=== PATIENT | male | born 1990 | race Caucasian/White ===

== ENCOUNTER 2022-01-22 15:33 | Outpatient (REF) | payer OTHER, SELFPAY ==
[2022-01-23 15:46] LABS: CT PCR NOT DETECTED (Not Detect.); NG PCR DETECTED (Not Detect.)
== END 2022-01-22 15:34 | disposition home or self-care (01) ==
LOC: HO.LAB 15:33
PROVIDERS: Visit Provider Nurse Practitioner Family
DX: Z11.3 Encounter for screening for infections with a predominantly sexual mode of transmission (principal); R30.0 Dysuria; R36.0 Urethral discharge without blood
CPT/HCPCS: 87086; 87491; 87591

== ENCOUNTER 2022-01-23 08:05 | Outpatient (REF) | payer OTHER, SELFPAY ==
[2022-01-23 12:28] LABS: HBc Num1 0.09 S/CO (0.00-0.79); HBsAGNum1 0.19 S/CO (0.00-0.99); HIV AB/AG Nonreactive (Nonreactive); HIV Num 1 0.06 S/CO (0.00-0.99); Hepatitis B Core Antibody Nonreactive (Nonreactive); Hepatitis B Surface Antigen Negative (Negative); ~Hepatitis B Surface Antibody REACTIVE (Nonreactive); ~Hepatitis C Antibody Nonreactive (Nonreactive)
[2022-01-24 05:13] LABS: Syphilis Screen Nonreactive (Nonreactive)
== END 2022-01-23 08:06 | disposition home or self-care (01) ==
LOC: HO.WFDLDS 08:05
PROVIDERS: Visit Provider Nurse Practitioner Family
DX: R30.0 Dysuria (principal); R36.0 Urethral discharge without blood; Z11.3 Encounter for screening for infections with a predominantly sexual mode of transmission; Z11.8 Encounter for screening for other infectious and parasitic diseases; Z11.4 Encounter for screening for human immunodeficiency virus [HIV]; Z11.59 Encounter for screening for other viral diseases
CPT/HCPCS: 36415; 86704; 86706; 86780; 86803; 87340; 87389

== ENCOUNTER 2024-07-13 09:06 | Outpatient (AMB) | payer OTHER, SELFPAY ==
--- NOTE | 2024-07-13 09:12 | MHC.PC.OV ---
Vital Signs 07/13/24 09:14 Height 5 ft 8.5 in Weight 158 lb BMI 23.7 BP 142/90 H Blood Pressure Location Lt brachial Position Sitting Intake Visit Reasons: Re-establish care Intake Note: Patient here to re-establish care Abap Developer Required: Yes Abap Developer Language: Performing Arts Technicians Name: Sylvia Pulliam MD Information Interpreted: non-clinical & clinical Accompanied by: Self / Same As Patient Allergies seafood Allergy (Intermediate, Verified 07/13/24 09:37) Chest Pain Medication List - Last Reconciled 07/13/24 by Sylvia Pulliam MD amlodipine 10 mg PO DAILY cholecalciferol (vitamin D3) 25 mcg PO DAILY cinacalcet 30 mg PO DAILY mycophenolate sodium 540 mg PO BID prednisone mg PO sulfamethoxazole-trimethoprim 400-80 mg 1 tab PO DAILY tacrolimus 0 mg PO valganciclovir 450 mg PO DAILY Tobacco use date assessed: 07/13/24 Dental Screening Dental Screen Date: 07/13/24 Did you have a dental visit in the last 12 months?: Yes Did you have a dental problem in the last 6 months where you did not have access to dental care?: No Was dental information given to patient?: Patient has dentist HPI HPI Comments History of Present Illness Details The patient is a 33-year-old male presenting for hypertension management. The patient has a longstanding history of elevated blood pressure, slightly elevated at present. He is currently prescribed Amlodipine 10 mg and recently added Hydralazine 10 mg three times a day. His blood pressure has been intermittently controlled. Additionally, the patient is status post renal transplant from 2019, initially faced organ rejection, with subsequent stabilization after treatment adjustment. His management includes immunosuppressive therapy with Sacrolimus 1 mg as well as routine follow-up with a nephrology specialist. He has prediabetes, noted earlier this year, and is being monitored for this condition. The patient was on short-term Prednisone but is completing the course. A recent hospitalization addressed complications linked to his renal transplant. He abstains from alcohol except on rare special occasions and has quit smoking. [facility] Medical History Essential hypertension Surgical History Kidney transplant status History of kidney surgery Family History Father No problems noted. Mother Diabetes Hypertension Social History Housing: Apartment Alcohol intake: current Alcohol intake frequency: holidays/special occasions only Alcohol type: wine and other Patient Tobacco Use Status: Former Tobacco user Tobacco use type: Cigarette e-Cigarette/Vaping Use: Never Used Second Hand Smoke Exposure: No service: No Current occupational status: unemployed Cognitive needs: No Hearing needs: No Vision needs: No Questionnaire PHQ-9 Over the last 2 weeks, how often have you been bothered by any of the following problems? 1. Little interest or pleasure in doing things: not at all 2. Feeling down, depressed, or hopeless: not at all 3. Trouble falling or staying asleep, or sleeping too much: not at all 4. Feeling tired or having little energy: not at all 5. Poor appetite or overeating: not at all 6. Feeling bad about yourself - or that you are a failure or have let yourself or your family down: not at all 7. Trouble concentrating on things, such as reading the newspaper or watching television: not at all 8. Moving or speaking so slowly that other people could have noticed. Or the opposite - being so fidgety or restless that you have been moving around a lot more than usual: not at all 9. Thoughts that you would be better off or of hurting yourself in some way: not at all Total score: 0 Depression Screening Interpretation: Negative Depression Screening Done: Yes 34196 - PHQ-9 Billing: Yes Source: Developed by Drs. Neil Mc, Erica Westbrook, Nikos Randhawa and colleagues, with an educational shawn from [employer]. Thrive Questionnaire Date Thrive assessed: 07/13/24 I am a: Patient What is your living situation today?: I have a steady place to live Within the past 12 months, did the food you bought not last and you didn't have the money to get more?: Never true Within the past 12 months, did you worry whether your food would run out before you got money to buy more?: Never true Do you have trouble paying for medicines?: No Do you have trouble getting transportation to medical appointments?: No Do you have trouble paying your heating and electricity bill?: No Do you have trouble taking care of your child, family member or friend?: No Do you have trouble with day-to-day activities such as bathing, preparing meals, shopping, managing finances, etc.?: No Are you currently unemployed and looking for a job?: No Are you interested in more education?: No Please select the resources that you would like help with: None Currently or been in a relationship where the following occur: No concerns reported THRIVE Score: 0 AUDIT C Alcohol Use Questionnaire (AUDIT-C) 1. How often do you have a drink containing alcohol?: Never Total Score: 0 Score Reviewed/Action Taken: No JOANNE-7 AMB Questionnaire JOANNE-7 Date JOANNE - 7 assessed: 07/13/24 Feeling nervous, anxious, or on edge: 0 = Not at all Not being able to stop or control worryin = Not at all Worrying too much about different things: 0 = Not at all Trouble relaxin = Not at all Being so restless that it is hard to sit still: 0 = Not at all Becoming easily annoyed or irritable: 0 = Not at all Feeling afraid as if something awful might happen: 0 = Not at all Total JOANNE-7 score (0-4 normal; 5-9 mild; 10-14 moderate; 15-21 severe): 0 Source: Developed by Drs. Neil Mc, Erica Westbrook, Nikos Radnhawa and colleagues, with an educational shawn from [employer]. JOANNE-7 Assessment Billing JOANNE-7 Assessment Tool: JOANNE-7 Assessment 61864 Review of Systems Const All systems reviewed & are unremarkable except as noted in HPI and below Card Denies chest pain at rest, Denies chest pain with activity, Denies edema, Denies irregular heart rhythm, Denies claudication, Denies dyspnea, Denies dyspnea on exertion, Denies orthopnea, Denies paroxysmal nocturnal dyspnea and Denies slow heart rate Resp Denies cough, Denies dyspnea and Denies dyspnea on exertion Musc Denies atrophy, Denies deformity and Denies limited range of motion Skin/Breast Denies bleeding lesions, Denies changing lesions and Denies rash Physical exam (Primary Care) Vital Signs: Last Vital Signs BP 142/90 H 07/13/24 09:14 BMI result Body Mass Index 23.7 Tobacco/Smoking Status: Tobacco use Status Tobacco use date assessed 07/13/24 07/13/24 09:24 Patient Tobacco Use Status Former Tobacco user 07/13/24 09:24 Tobacco use type Cigarette 07/13/24 09:24 e-Cigarette/Vaping Use Never Used 07/13/24 09:12 PHQ-9: PHQ-9 Score PHQ-9: Total score 0 07/13/24 09:44 Depression Screening Interpretation: Negative Thrive Assessment: Date of Thrive Assessment Date Thrive assessed 07/13/24 07/13/24 09:24 Currently or been in a relationship where the following occur: No concerns reported Resp Effort & Inspection: normal respiratory effort Auscultation: clear to auscultation bilaterally Cardio Jugular venous distension: no JVD Rate: regular rate Rhythm: regular rhythm Heart sounds: S1 normal heart sound present and S2 normal heart sound present Extrem General: Yes full ROM Coding Level of Care Code Est Pt Level 4 (34802) Complex EM visit Add On G2211 Diagnoses Essential hypertension I10 Kidney transplant status Z94.0 Impaired glucose tolerance R73.02 CKD (chronic kidney disease) stage 3, GFR 30-59 ml/min N18.30 Additional Codes JOANNE-7 Assessment Billing - JOANNE-7 Assessment Tool: JOANNE-7 Assessment 29083 ([id number]) PHQ-9 - 26081 - PHQ-9 Billing: Yes ([id number]) Time Spent (min) 25 Assessment & Plan Assessment & Plan (1) Essential hypertension: Code(s): I10 - Essential (primary) hypertension Category: Medical (2) Kidney transplant status: Comment: July 2018 Code(s): Z94.0 - Kidney transplant status Category: Surgical (3) Impaired glucose tolerance: Code(s): R73.02 - Impaired glucose tolerance (oral) Category: Medical (4) CKD (chronic kidney disease) stage 3, GFR 30-59 ml/min: Code(s): N18.30 - Chronic kidney disease, stage 3 unspecified Category: Medical Plan Management involves overseeing hypertension, maintained under control with Amlodipine and Hydralazine. Continued dual therapy aims to improve control over hypertension. The chronic kidney disease and renal transplant status necessitate ongoing use of Sacrolimus and regular nephrology consultations. Blood glucose and anemia will be monitored post-Prednisone cessation. The plan includes following up with completed laboratory evaluations in three weeks. Additional assessment of cholesterol and hemoglobin will help tailor future management for anemia and related conditions. Patient was informed and verbally consented to the use of an ambient scribe for clinic note documentation during this visit. During the visit, I discussed the increased blood pressure and the plan to manage it with both lifestyle modifications and medication adjustments. The risks and benefits of Amlodipine and Hydralazine were reviewed, noting the necessity of regular monitoring due to potential side effects. The importance of sticking to the current regimen post-kidney transplant was emphasized, particularly the significance of Sacrolimus. Management strategies were discussed for the slight rise in blood glucose, with instructions to reduce sugars two weeks after Prednisone cessation. Follow-up for chronic kidney disease with microbiology analyst and monitoring changes in blood work were advised. Patient clearly understands the healthcare plan and the importance of adherence. Orders: Orders Lipid Panel Today E78.5 - Hyperlipidemia, unspecified IRON PROFILE Today D64.9 - Anemia, unspecified Vitamin D 25-OH Total Today E55.9 - Vitamin D deficiency, unspecified Complete Blood Count Auto Diff Today D64.9 - Anemia, unspecified Comprehensive [place]. Panel Fast Today N18.30 - Chronic kidney disease, stage 3 unspecified Medications: New hydralazine 10 mg PO TID 30 days 90 tabs 2RF I10 - Essential (primary) hypertension hydralazine 10 mg PO TID 90 tabs 2RF 30 days I10 - Essential (primary) hypertension Patient Instructions: - Continue taking Amlodipine 10 mg daily. - Start Hydralazine 10 mg three times a day. - Monitor blood pressure regularly and report significant readings. - Follow up in three weeks for further evaluation. - Continue Sacrolimus and other medications for kidney transplant management. - Plan for lab work two weeks after Prednisone treatment ends. - Maintain a healthy diet with monitoring of sugar intake. - Report any new or worsening symptoms immediately.
[2024-07-13 09:14] VITALS: BP 142/90; BMI 23.7
--- OUTSIDE RECORDS SUMMARY | 2024-07-13 09:56 | XMS_ITS | Clinical Summary ---
Author Organization Formerly [facility] Address [address] [place] [address] Care Team Providers Care Senior Label Specialist Name Role Phone Pcp, No Primary Care Provider Unavailabl e Encounters Date Type Department Care Team Description 06/02/2024 Orders Only [facility] Fernando Ansari MD from Last 3 Months Social History Tobacco Use Types Packs/Day Years Used Date Smoking Tobacco: Never Assessed Sex and Gender Information Value Date Recorded Sex Assigned at Not on file Gender Identity Not on file Sexual Orientation Not on file Plan of Treatment Health Maintenance Due Date Last Done Comments Hepatitis C Virus Screening 1990 HIV Screening 07/23/2003 DTaP/Tdap/Td Vaccines (1 - Tdap) 2009 Pneumococcal Vaccine: Pediat heavenly (0-5 Years) and At-Risk Patients (6 to 49 Years) (1 of 2 - PCV) 2009 Hepatitis B Vaccines (1 of 3 - Risk Dialysis 4-dose series) 2010 Influenza Vaccine 11/26/2023 COVID-19 Vaccine ( - 2023-2 5 season) 2023 HPV Vaccines Aged Out No longer eligi ble based on patient's age to complete this topic Procedures Procedure Name Priority Date/Time Associated Diagnosis Comments LAB RESULT Routine 06/01/2024 8:44 AM EST from Last 3 Months Results * LAB RESULT (06/01/2024 8:44 AM EST) Fernando Ansari MD HX AMB PROCEDURES from Last 3 Months Care Teams Senior Label Specialist Relationship Specialty Start Date End Date Pcp, [address] [place] [address] PCP - General 01/23/21
--- OUTSIDE RECORDS SUMMARY | 2024-07-13 09:56 | XMS_ITS | Clinical Summary ---
Author Organization [facility] Address [address] [facility] [address] [place] [address] Phone Care Team Providers Care Aerodynamics Teacher Name Role Phone Sylvia Gannon MD Primary Care Provider [phone] Allergies No known active allergies Medications cinacalcet (SENSIPAR) 30 MG tabletIndicatio ns:History of renal transplant Take 1 tablet (30 mg total) by mouth 1 (one) time each day 30 tablet 11 3 Active ergocalciferol 1.25 MG (90964 UT) capsule MONICA YONI CAPSULA POR LA BOCA CADA SEMANA 4 capsule 11 3 Active mycophenolate (MYFORTIC) 180 MG EC tablet Take 3 tablets (540 mg total) by mouth in the morning and 3 tablets (540 mg total) in the evening. 540 tablet 3 5 05/24/19 26 Active tacrolimus (PROGRAF) 0.5 MG capsule Take 1 capsule (0.5 mg total) by mouth in the morning and 1 capsule (0.5 mg total) in the evening. 180 capsule 5 09/01/19 25 Active amLODIPine (NORVASC) 10 MG tabletIndicatio ns:Hypertensive disorder Take 1 tablet (10 mg total) by mouth 1 (one) time each day 30 tablet 11 5 06/23/19 26 Active amLODIPine (NORVASC) 10 MG tabletIndicatio ns:Hypertensive disorder Take 1 tablet (10 mg total) by mouth 1 (one) time each day 30 tablet 11 3 06/23/19 25 Discontinu ed(Reorder (does not appear on AVS)) Active Problems Problem Noted Date Diagnosed Date Acute nontraumatic kidney injury 01/22/2021 Cardiomyopathy 01/22/2021 History of renal transplant 01/22/2021 Hypertensive disorder 01/22/2021 Poisoning by antineoplastic and immunosuppressiv e drugs 01/22/2021 Recipient of transplantation 08/03/2017 Overview (08/18/2022): campath induction Hyperparathyroidism due to renal insufficiency 0 07/14/2009 Metabolic bone disease 07/14/2009 Anemia of chronic renal failure 06/18/2009 Iron deficiency anemia 06/18/2009 Resolved Problems Problem Noted Date Diagnosed Date Resolved Date Chronic kidney disease stage 3 01/22/2021 02/18/2022 Diabetes mellitus 01/22/2021 02/18/2022 On waiting list for organ transplant 01/22/2021 03/18/2022 End stage renal disease 06/22/201201/26 Dependence on hemodialysis d ue to end stage renal disease 07/14/2009 02/18/2022 Encounters Date Type Department Care Team Description 06/23/2024 Refill [facility] [address] [address] Ina Mcdowell Hypertensive disorder 06/17/2024 Orders Only [facility] [address] [address] Jorge Mcknight MD History of renal transplant 06/02/2024 Telephone [facility] [address] [address] Jorge Mcknight MD 06/01/2024 Telephone [facility] [address] [address] Jorge Mcknight MD 05/30/2024 Office Communication [facility] [address] [address] Tai Mcdowelliana 05/24/2024 3:45 PM EST Office Visit [facility] [address] [place] [address] Jorge Mcknight MD History of renal transplant (Primary Dx) 05/24/2024 Office Communication [facility] [address] [place] [phone] Jorge Mcknight MD from Last 3 Months Immunizations Name Administration Dates Next Due Influenza (IM) Preservative Free 02/02/2013 Pneumococcal Polysaccharide 06/04/2012 Family History Medical History Relation Comments Hypertension Father Diabetes Mother Hypertension Mother Relation Status Comments Father Alive Mother Alive Social History Tobacco Use Types Packs/Day Years Used Date Smoking Tobacco: Former Smokeless Tobacco: Never Tobacco Cessation:Counseling Given: Not Answered Alcohol Use Standard Drinks/Week Comments Never 0 (1 standard drink = 0.6 oz pur e alcohol) Sex and Gender Information Value Date Recorded Sex Assigned at Not on file Legal Sex Male 5:07 PM EST Gender Identity Not on file Sexual Orientation Not on file Last Filed Vital Signs Vital Sign Reading Time Taken Comments Blood Pressure 130/90 05/24/2024 3:29 PM EST Pulse 94 05/24/2024 3:29 PM EST Temperature - - Respiratory Rate - - Oxygen Saturation 97% 05/24/2024 3:29 PM EST Inhaled Oxygen Concentration - - Weight 78.7 kg (173 lb 9.6 oz) 05/24/2024 3:29 P M EST Height 172.7 cm (5' 8 ) 03/18/2022 11:36 AM EST Body Mass Index 26.4 03/18/2022 11:36 AM EST Plan of Treatment Upcoming Encounters Date Type Department Care Team (Late st Contact Info) Description 09/02/2024 10:15 AM EDT Office Visit [facility] [address] [place] [phone] Jorge Mcknight MD [address] [phone] Health Maintenance Due Date Last Done Comments Hepatitis B Vaccine (1 of 3 - 19+ 3-dose series) 03/28 /2010 Pneumococcal Vaccine: Pediat rics (0 to 5 Years) and At-Risk Patients (6 to 64 Years) (2 of 2 - PCV) 06/04/2013 06/04/2012 Influenza Vaccine (#1) 2023 02/02/2013 Procedures Procedure Name Priority Date/Time Associated Diagnosis Comments BK VIRUS, DNA, QUANTITATIVE Routine 05/30/2024 11:20 AM EST History of renal transplant VITAMIN D 25 HYDROXY Routine 05/30/2024 11:20 AM EST History of renal transplant PTH, INTACT Routine 05/30/2024 11:20 AM EST History of renal transplant IRON PANEL (FE, TIBC, TSAT) Routine 05/30/2024 11:20 AM EST History of renal transplant URIC ACID Routine 05/30/2024 11:20 AM EST History of renal transplant FERRITIN Routine 05/30/2024 11:20 AM EST History of renal transplant HEMOGLOBIN A1C Routine 05/30/2024 11:20 AM EST History of renal transplant PHOSPHATE ( PHOSPHORUS) Routine 05/30/2024 11:20 AM EST History of renal transplant MAGNESIUM Routine 05/30/2024 11:20 AM EST History of renal transplant URINE ALBUMIN / CREATININE RATIO Routine 05/30/2024 11:20 AM EST History of renal transplant PROTEIN / CREATININE RATIO, URINE Routine 05/30/2024 11:20 AM EST History of renal transplant URINALYSIS WITH MICROSCOPIC Routine 05/30/2024 11:20 AM EST History of renal transplant BASIC METABOLIC PANEL Routine 05/30/2024 11:20 AM EST History of renal transplant CBC AND DIFFERENTIAL Routine 05/30/2024 11:20 AM EST History of renal transplant TACROLIMUS LEVEL Routine 05/30/2024 11:2 0 AM EST History of renal transplant MICROSCOPIC EXAMINATION - DO NOT USE Routine 05/30/2024 11:20 AM EST BASIC METABOLIC PANEL Routine 05/26/2024 10:28 AM EST History of renal transplant TACROLIMUS, HIGHLY SENSITIVE, LC/MS/MS Routine 05/26/2024 10:24 AM EST from Last 3 Months Results * Microscopic Examination (05/30/2024 11:20 AM EST) WBC, Urine 0-5 0 - 5 /hpf [facility] RBC, Urine None seen 0 - 2 /hpf [facility] Squamous Epithelial, Urine 0-10 0 - 10 /hpf [facility] Casts None seen None seen /lpf [facility] Bacteria, Urine None seen None seen/Few [facility] 05/30/2024 11:2 0 AM EST 05/30/2024 Jorge Mcknight MD LAB MICROBIOLOGY - NERAL ORDERABLES Final Result [facility] [address] [place] [address] * Tacrolimus level (05/30/2024 11:20 AM EST) Tacrolimus Lvl 13.2 5.0 - 20.0 ng/mL [facility] Comment: Target steady state trough concentration for Tacrolimus varies based on type of organ transplant immunosuppressive protocol and other patient specific factors. ??Tacrolimus trough concentrations should be interpreted in conjunction with clinical assessments of rejection and tolerability. ??Values obtained with different assay methods cannot be used interchangeably due to differences in assay methods and cross-reactivty with metabolites, nor should correction factors be applied. ??Therefore, consistent use of one assay for individual patients is recommended. Detection Limit = 0.5 ng/mL Performed by LC-MS/MS technology ?Please note reference interval change Blood (Blood, Venous) 05/30/2024 11:20 AM EST 05/30/2024 Narrative [facility] - 06/01/2024 11:06 PM EST Test(s) [id number] ([id number]), Blood was developed and its performance characteristics determined by [employer]. It has not been cleared or approved by the Food and Drug Administration. Jorge Mcknight MD LAB BLOOD ORDERABLES Final Result Performing Organization Address City/[facility] Co de Phone Number [facility] [address] [place] [address] * (ABNORMAL) Iron Panel (Fe, TIBC, TSAT) (05/30/2024 11:20 AM EST) TIBC 281 250 - 450 ug/dL [facility] UIBC 114 111 - 343 ug/dL [facility] Iron 167 38 - 169 ug/dL [facility] Iron Saturation (TSat) 59(H) 15 - 55 % [facility] Blood (Blood, Venous) 05/30/2024 11:20 AM EST 05/30/2024 Jorge Mcknight MD LAB BLOOD ORDERABLES Final Result Performing Organization Address City/[facility]/ZIP Co de Phone Number [facility] [address] [place] [address] * (ABNORMAL) Protein, Total, Random Urine w/Creatinine (Protein/Creat Ratio) (05/30/2024 11:20 AM EST) Creatinine, Ur 169.1 Not Estab. mg/dL [facility] Protein, Ur 44.2 Not Estab. mg/dL [facility] Urine Protein/Creati nine Ratio 261(H) 0 - 200 mg/g creat [facility] Urine (Urine, Clean Catch) 05/30/2024 11:20 AM EST 05/30/2024 Jorge Mcknight MD LAB URINE ORDERABLES Final Result Performing Organization Address [facility] Co de Phone Number [facility] [address] [place] [address] * (ABNORMAL) Urine Albumin / Creatinine Ratio (05/30/2024 11:20 AM EST) Albumin, Urine 190.7 Not Estab. ug/mL [facility] Albumin/Creatin ine Ratio 113(H) 0 - 29 mg/g creat [facility] Comment: ? Normal: ?0 - ??29 ? Moderately increased: 30 - 300 ? Severely increased: ? >300 Urine (Urine, Clean Catch) 05/30/2024 11:20 AM EST 05/30/2024 Jorge Mcknight MD LAB URINE ORDERABLES Final Result Performing Organization Address [facility] Co de Phone Number [facility] [address] [place] [address] * BK virus, DNA, quantitative (05/30/2024 11:20 AM EST) BK VIRUS DNA, PCR Negative Negative IU/mL [facility] Comment: No BK DNA detected. The linear range of the assay is 22 - 100,000,000 IU/mL. Blood (Blood, Venous) 05/30/2024 11:20 AM EST 05/30/2024 Jorge Mcknight MD LAB BLOOD ORDERABLES Final Result Performing Organization Address City/[facility]/ZIP Co de Phone Number [facility] [address] [place] [address] * (ABNORMAL) Vitamin D 25 Hydroxy (05/30/2024 11:20 AM EST) Vitamin D, 25-OH, Total 23.1(L) 30.0 - 100.0 ng/mL [facility] Comment: Vitamin D deficiency has been defined by the [place] of Medicine and an Endocrine Society practice guideline as a level of serum 25-OH vitamin D less than 20 ng/mL (1,2). The Endocrine Society went on to further define vitamin D insufficiency as a level between 21 and 29 ng/mL (2). 1. IOM ([place] of Medicine). 2010. Dietary reference ?? intakes for calcium and D. [place]: The ?? National Academies Press. 2. Pia MF, Anil NC, Rey CARVAJAL, et al. ?? Evaluation, treatment, and prevention of vitamin D ?? deficiency: an Endocrine Society clinical practice ?? guideline. JCEM. 2010; 96(7):1911-30. Blood (Blood, Venous) 05/30/2024 11:20 AM EST 05/30/2024 Jorge Mcknight MD LAB BLOOD ORDERABLES Final Result [facility] [address] [place] [address] * (ABNORMAL) Urinalysis with microscopic (05/30/2024 11:20 AM EST) Specific [place], Urine 1.015 1.005 - 1.030 [facility] pH Urine 5.5 5.0 - 7.5 [facility] Color, Urine Yellow Yellow [facility] Appearance Urine Clear Clear [facility] WBC Esterase Urine Negative Negative [facility] Protein, Ur 2+(A) Negative/Tra ce [facility] Glucose, Ur Negative Negative [facility] [phone] Ketones, Urine Negative Negative [facility] Blood Urine Negative Negative [facility] Bilirubin Urine Negative Negative [facility] Urobilinogen Urine 0.2 0.2 - 1.0 mg/dL [facility] Nitrite, Urine Negative Negative [facility] Microscopic Examination See below: [facility] Comment:Microscopic was yves cated and was performed. Urine (Urine, Clean Catch) 05/30/2024 11:20 AM EST 05/30/2024 us Jorge Mcknight MD LAB URINE ORDERABLES Final Result [facility] [address] [place] [address] * (ABNORMAL) CBC and Differential (05/30/2024 11:20 AM EST) WBC 9.3 3.4 - 10.8 x10E3/uL [facility] RBC 4.52 4.14 - 5.80 x10E6/uL [facility] Hemoglobin 13.9 13.0 - 17.7 g/dL [facility] Hematocrit 41.1 37.5 - 51.0 % [facility] MCV 91 79 - 97 fL [facility] MCH 30.8 26.6 - 33.0 pg [facility] MCHC 33.8 31.5 - 35.7 g/dL [facility] RDW 11.7 11.6 - 15.4 % [facility] Platelets 270 150 - 450 x10E3/uL [facility] Neutrophils Relative 78 Not Estab. % [facility] Lymphocytes Relative 15 Not Estab. % [facility] Monocytes 7 Not Estab. % [facility] Eosinophils Relative 0 Not Estab. % [facility] Basophils Relative 0 Not Estab. % [facility] Neutrophils Absolute 7.1(H) 1.4 - 7.0 x10E3/uL [facility] Lymphocytes Absolute 1.4 0.7 - 3.1 x10E3/uL [facility] Monocytes Absolute 0.6 0.1 - 0.9 x10E3/uL [facility] Eosinophils Absolute 0.0 0.0 - 0.4 x10E3/uL [facility] Basophils Absolute 0.0 0.0 - 0.2 x10E3/uL [facility] Immature Granulocytes 0 Not Estab. % [facility] Immature Grans (Absolute) 0.0 0.0 - 0.1 x10E3/uL [facility] Blood (Blood, Venous) 05/30/2024 11:20 AM EST 05/30/2024 Jorge Mcknight MD LAB BLOOD ORDERABLES Final Result [facility] [address] [place] [address] * Uric Acid (05/30/2024 11:20 AM EST) Uric Acid 7.5 3.8 - 8.4 mg/dL [facility] Comment:Therapeutic target f or gout patients: <6.0 Blood (Blood, Venous) 05/30/2024 11:20 AM EST 05/30/2024 Jorge Mcknight MD LAB BLOOD ORDERABLES Final Result Performing Organization Address City/[facility]/ZIP Co de Phone Number [facility] [address] [place] [address] * Phosphorus (05/30/2024 11:20 AM EST) Phosphorus 2.8 2.8 - 4.1 mg/dL [facility] Blood (Blood, Venous) 05/30/2024 11:20 AM EST 05/30/2024 Jorge Mcknight MD LAB BLOOD ORDERABLES Final Result [facility] [employer] [facility] [address] [place] [address] * PTH, Intact (05/30/2024 11:20 AM EST) PTH 59 15 - 65 pg/mL [facility] Blood (Blood, Venous) 05/30/2024 11:20 AM EST 05/30/2024 us Jorge Mcknight MD LAB BLOOD ORDERABLES Final Result Performing Organization Address [facility] Co de Phone Number [facility] [address] [place] [address] * Magnesium (05/30/2024 11:20 AM EST) Magnesium 1.8 1.6 - 2.3 mg/dL [facility] Blood (Blood, Venous) 05/30/2024 11:20 AM EST 05/30/2024 us Jorge Mcknight MD LAB BLOOD ORDERABLES Final Result Performing Organization Address [facility] de Phone Number [facility] [address] [place] [address] * Hemoglobin A1c (05/30/2024 11:20 AM EST) Hemoglobin A1C 5.4 4.8 - 5.6 % [facility] Comment: ? Prediabetes: 5.7 - 6.4 ? Diabetes: >6.4 ? Glycemic control for adults with diabetes: <7.0 Blood (Blood, Venous) 05/30/2024 11:20 AM EST 05/30/2024 us Jorge Mcknight MD LAB BLOOD ORDERABLES Final Result Performing Organization Address City/[facility] Co de Phone Number [facility] [address] [place] [address] * (ABNORMAL) Ferritin (05/30/2024 11:20 AM EST) Ferritin 1,986(H) 30 - 400 ng/mL [facility] Blood (Blood, Venous) 05/30/2024 11:20 AM EST 05/30/2024 us Jorge Mcknight MD LAB BLOOD ORDERABLES Final Result [facility] [address] [place] [address] * (ABNORMAL) Basic Metabolic Panel (05/30/2024 11:20 AM EST) Only the most recent of2 resultswithin the time period is included. [facility] Glucose 95 70 - 99 mg/dL [facility] BUN 26(H) 6 - 20 mg/dL [facility] Creatinine 2.42(H) 0.76 - 1.27 mg/dL [facility] eGFR CKD-EPI CR 2020 35(L) >59 mL/min/1.7 3 [facility] BUN/Creatinine Ratio 11 9 - 20 [facility] Sodium 142 134 - 144 mmol/L [facility] Potassium 4.7 3.5 - 5.2 mmol/L [facility] Chloride 105 96 - 106 mmol/L [facility] Bicarbonate (CO2) 20 20 - 29 mmol/L [facility] Calcium 11.3(H) 8.7 - 10.2 mg/dL [facility] Comment:Result Repeated Blood (Blood, Venous) 05/30/2024 11:20 AM EST 05/30/2024 Jorge Mcknight MD LAB BLOOD ORDERABLES Final Result [facility] [address] [place] [address] * Tacrolimus, Highly Sensitive, LC/MS/MS (05/26/2024 10:24 AM EST) Tacrolimus by Immunoassay 13.7 5 - 20 NG/ML [facility] Comment: Tacrolimus Renal transplant patients (C0-trough level*): 0 - 3 months, 10 - 15 ng/mL: >3 - 12 months, 5 - 15 ng/mL: >12 months: 5 - 10 ng/mL (assuming no induction, mTOR inhibitor or IL-2 receptor antibody therapy) *Disclaimer: The target therapeutic ranges given here are a general guide and exact ranges may differ according to therapeutic indication. Please refer appropriate professional body guidance documents and references cited below. Duane T, Paul C, Rj N, et al Randomized trial of tacrolimus + mycophenolate mofetil or azathioprine versus cyclosporine + mycophenolate mofetil after cadaveric kidney transplantation: Results at three years Transplantation. 2003,75:2048-53. Vanemmanuelle Y, van Hooff ALISHA, Jhonnylet ALISHA, et al Minimization of immunosuppressive therapy after renal transplantation: Results of a randomized controlled trial Am J Transplant. 2005,5:87-95. Tiffanie FG, Henry H, Luis Enrique ALISHA, et al. Comparison of low versus high tacrolimus levels in kidney transplantation: Assessment of efficacy by protocol biopsies Transplantation. 2007,83:411-6. Sarah P, Rachael VW, Damián M, et al Opportunities to optimize tacrolimus therapy in solid organ transplantation: Report of the consensus conference Ther Drug Monit. 2009,31:139-52. Joan Harp., Lito Harp., [place], T.L.H. et al. Higher tacrolimus trough levels and time in the therapeutic range are associated with the risk of acute rejection in the first month after renal transplantation. [facility] 2022,24, 131. 05/26/2024 10:2 4 AM EST 05/26/2024 Jorge Mcknight MD LAB BLOOD ORDERABLES Final Result [facility] [address] [place] [address] from Last 3 Months Insurance [facility] ([id number]) [facility] ([id number]) Care Teams Aerodynamics Teacher Relationship Specialty Start Date End Date Sylvia Gannon MD [address] [place], [place] PCP - General 05/07/20
--- OUTSIDE RECORDS SUMMARY | 2024-07-13 09:56 | XMS_ITS | Clinical Summary ---
Author Organization [address] [facility] Address [address] [place] [address] Phone Care Team Providers Care Sheet Rock Taper Helper Name Role Phone Sylvia Pulliam MD Primary Care Provider [phone] Encounters Date Type Department Care Team Description 06/23/2024 Lab Requisition [facility] - Main Lab [address] [facility] [place] [address] Fernando Gómez MD Kidney transplant status from Last 3 Months Social History Tobacco Use Types Packs/Day Years Used Date Smoking Tobacco: Never Assessed Sex and Gender Information Value Date Recorded Sex Assigned at Not on file Legal Sex Male 1:55 PM EST Gender Identity Not on file Sexual Orientation Not on file Plan of Treatment Health Maintenance Due Date Last Done Comments COVID-19 Vaccine (#1) 07/23/1995 DTaP,Tdap,and Td Vaccines (1 - Tdap) 2009 Hepatitis B Vaccines (1 of 3 - 19+ 3-dose series) 2009 Pneumococcal Vaccine: Pediat rics (0 to 5 Years) and At-Risk Patients (6 to 64 Years) (1 of 2 - PCV) 2009 Influenza Vaccine (#1) 2023 Cholesterol Screening (Lipid Panel) 06/23/2024 Depression Screening 06/23/2024 HIV Screening 06/23/2024 Hepatitis C Screening 06/23/2024 Hypertension/CHF/CAD Annual BMP Blood Test 06/23/2024 Social Influencers of Health Screening 06/23/2024 HIB Vaccines Aged Out No longer eligi ble based on patient's age to complete this topic HPV Vaccines Aged Out No longer eligi ble based on patient's age to complete this topic Hepatitis A Vaccines Aged Out No long er eligible based on patient's age to complete this topic IPV Vaccines Aged Out No longer eligi ble based on patient's age to complete this topic MMR Vaccines Aged Out No longer eligi ble based on patient's age to complete this topic Meningococcal ACWY Vaccine Aged Out N o longer eligible based on patient's age to complete this topic Meningococcal B Vacine Aged Out No lo nger eligible based on patient's age to complete this topic RSV Immunization Patients Un aldo 20 months Aged Out No longer eligible b ased on patient's age to complete this topic Varicella Vaccines Aged Out No longer eligible based on patient's age to complete this topic Procedures Procedure Name Priority Date/Time Associated Diagnosis Comments TISSUE EXAM Routine 06/23/2024 Kidney transplant status from Last 3 Months Results * Tissue Exam (06/23/2024) Final Diagnosis Transplant Kidney-biopsy for light, immunofluorescence and electron microscopy: -Submitted to [place], [place]. See addendum report 06/24/2024 10:13 AM [facility] Clinical Information Transplant kidney ESRD, post transplant with concern for failing transplant 06/24/2024 10:13 AM EST [facility] Gross Description A. Abdomen, Transplant kidney biopsy: Labeled transplant kidney . Received in formalin for light microscopy, Rolando fixative for immunofluorescence and EM media for electron microscopy are soft, de anda tissue cores. The specimens are submitted in toto to [place], [place]. Gross description only. TS 06/24/2024 10:13 AM [facility] Disclaimer Unless otherwise specified, all tissue is 10% NB formalin fixed and paraffin embedded. 06/24/2024 10:13 AM [facility] Tissue Abdomen / Unknown 06/23/2024 025 1:24 PM EST us Fernando Gómez MD LAB PATHOLOGY ORDERABLES Final Result [facility] [address] [place] [address], [place] [phone] from Last 3 Months Insurance [facility] Member Subscriber Plan / Payer (Ef fective 2014-Present) Name:Sanjay Leal Relation to Subscriber:Self Name:Sanjay Leal Payer ID:[id number] Group ID:[id number] Type:Not on file Address: [address] [place] [address] MEDICA[place] - [place] Care Teams Sheet Rock Taper Helper Relationship Specialty Start Date End Date Sylvia Pulliam MD [address] [place] [address] , [address] [facility] D/B/A: [facility] [place], [place] PCP - General Internal Medicine 06/24/24
--- OUTSIDE RECORDS SUMMARY | 2024-07-13 09:56 | XMS_ITS | Encounter Summary ---
Author Organization [facility] Address [address] [place] [address] Care Team Providers Care Microwave Oven Assembler Name Role Phone Sylvia Pulliam MD Primary Care Provider [phone] Encounter Details Date Type Department Care Team (Late st Contact Info) Description 06/23/2024 Lab Requisition [facility] - Main Lab [address] [facility] [place] [id number] Fernando Gómez MD [address] [place] [address] Kidney transplant status Social History Tobacco Use Types Packs/Day Years Used Date Smoking Tobacco: Never Assessed Sex and Gender Information Value Date Recorded Sex Assigned at Not on file Legal Sex Male 1:55 PM EST Gender Identity Not on file Sexual Orientation Not on file documented as of this encounter Plan of Treatment Pending Results Name Type Priority Associated Diagnoses Date /Time AP Kidney biopsy Pathology and Cytology Routine Kidney transplant status 06/23/2024 documented as of this encounter Procedures Procedure Name Priority Date/Time Associated Diagnosis Comments TISSUE EXAM Routine 06/23/2024 Kidney transplant status documented in this encounter Results * Tissue Exam (06/23/2024) Final Diagnosis Transplant Kidney-biopsy for light, immunofluorescence and electron microscopy: -Submitted to [facility], [place], [place]. See addendum report 06/24/2024 10:13 AM TOBI PALACIOS [place] ([facility]) [facility] Clinical Information Transplant kidney ESRD, post transplant with concern for failing transplant 06/24/2024 10:13 AM EST [facility] Gross Description A. Abdomen, Transplant kidney biopsy: Labeled transplant kidney . Received in formalin for light microscopy, Rolando fixative for immunofluorescence and EM media for electron microscopy are soft, de anda tissue cores. The specimens are submitted in [facility] to [facility] [place], [place]. Gross description only. TS 06/24/2024 10:13 AM [facility] Disclaimer Unless otherwise specified, all tissue is 10% NB formalin fixed and paraffin embedded. 06/24/2024 10:13 AM [facility] Tissue Abdomen / Unknown 06/23/2024 025 1:24 PM EST Fernando Gómez MD LAB PATHOLOGY ORDERABLES Final Result [facility] [address] [place] [address], documented in this encounter Visit Diagnoses Diagnosis Kidney transplant status documented in this encounter Care Teams Microwave Oven Assembler Relationship Specialty Start Date End Date Sylvia Pulliam MD [address] [facility] , [facility] [address] [facility] D[facility]A: [facility] MARVIN Howell PCP - General Internal Medicine 06/24/24 documented as of this encounter
--- OUTSIDE RECORDS SUMMARY | 2024-07-13 09:56 | XMS_ITS | Encounter Summary ---
Author Organization [facility] Address [address] [place] [address] Phone Care Team Providers Care Field Representatives Director Name Role Phone Sylvia Gannon MD Primary Care Provider Reason for Visit * Reason Onset Date Comments Med Refill 06/23/2024 Encounter Details Date Type Department Care Team (Late Contact Info) Description 06/23/2024 Refill [facility] [address] [place] [address] [facility] [address] [facility] [address] [place] [phone] Hypertensive disorder Social History Tobacco Use Types Packs/Day Years Used Date Smoking Tobacco: Former Smokeless Tobacco: Never Alcohol Use Standard Drinks/Week Comments Never 0 (1 standard drink = 0.6 oz pur e alcohol) Sex and Gender Information Value Date Recorded Sex Assigned at Not on file Legal Sex Male 5:07 PM EST Gender Identity Not on file Sexual Orientation Not on file documented as of this encounter Plan of Treatment Upcoming Encounters Date Type Department Care Team (Late Contact Info) Description 09/02/2024 10:15 AM EDT Office Visit [facility] [address] [place] [address] Jorge Mcknight MD [address] [place] [address] documented as of this encounter Visit Diagnoses Diagnosis Hypertensive disorder documented in this encounter Care Teams Field Representatives Director Relationship Specialty Start Date End Date Sylvia Gannon MD [address] [place], [place] PCP - General 05/07/20 documented as of this encounter
--- OUTSIDE RECORDS SUMMARY | 2024-07-13 09:56 | XMS_ITS | Encounter Summary ---
Author Organization [facility] Address [address] [address] Phone Care Team Providers Care Air Drier Name Role Phone Sylvia Gannon MD Primary Care Provider [phone] Encounter Details Date Type Department Care Team (Late st Contact Info) Description 06/17/2024 Orders Only [facility] [address] [address] Jorge Mcknight MD [address] [place] [phone] History of renal transplant Social History Tobacco Use Types Packs/Day Years [...] EDT Office Visit [facility] [address] [address] Jorge Mcknight MD [address] [place] [phone] documented as of this encounter Visit Diagnoses Diagnosis History of renal transplant documented in this encounter Care Teams Air Drier Relationship Specialty Start Date End Date Sylvia Gannon MD [address] [place] [address] [address] [place] PCP - General 05/07/20 documented as of this encounter
--- OUTSIDE RECORDS SUMMARY | 2024-07-13 09:56 | XMS_ITS ---
Author Name [facility] Organization Unknown Problems Problem Status Onset Date Problem Type Date of Resoluti on Source Complication of transplanted kidney, unspecified complication active EncounterDiagnosisAct CCT Encounters Encounter Type Encounter Reason Primary Diagnosis Location Date Ambulatory Unspecified complication of kidney transplant [facility] 04/17/2022 Ambulatory Unspecified complication of kidney transplant [facility] 03/18/2022 Ambulatory Chronic kidney disease, unspecified [facility] 02/26/2022 Care Team Organization Name Specialty Phone Email Start Date End Da te [facility] PCP,No Primary Care 03/18/2022 [facility] NO PCP Primary Care 01/23/2021 01/23/2021
== END 2024-07-13 09:57 | disposition home or self-care (01) ==
LOC: HO.HMCH 09:07
PROVIDERS: PCP Internal Medicine; Visit Provider Internal Medicine
DX: I10 Essential (primary) hypertension (principal); Z94.0 Kidney transplant status; R73.02 Impaired glucose tolerance (oral); N18.30 Chronic kidney disease, stage 3 unspecified

== ENCOUNTER → 2024-07-13 09:06 | Outpatient (BNVA) | payer OTHER, SELFPAY | PROVIDERS: PCP Internal Medicine; Visit Provider Internal Medicine | DX: R73.02 Impaired glucose tolerance (oral) (principal); I12.9 Hypertensive chronic kidney disease with stage 1 through stage 4 chronic kidney disease, or unspecified chronic kidney disease; N18.30 Chronic kidney disease, stage 3 unspecified; Z94.0 Kidney transplant status | CPT/HCPCS: 96127; 99212 ==